=== PATIENT | female | born 1935 | race Caucasian/White ===

== ENCOUNTER → 2019-02-24 11:49 | Outpatient (CLI) | payer MEDICARE, SELFPAY ==
--- NOTE | 2019-02-24 11:53 | DI.MG.S_ITS ---
UNILATERAL LEFT DIGITAL SCREENING MAMMOGRAM 3D/2D WITH CAD POST MASTECTOMY: 02/24/2019 CLINICAL: Routine screening. Personal history of right breast cancer. Comparison is made to exams dated: 03/23/2017 mammogram, 01/30/2014 mammogram, and 06/12/2011 mammogram - [facility]. There are scattered fibroglandular elements in left breast. Current study was also evaluated with a Computer Aided Detection (CAD) system. There are benign vascular calcifications in the left breast. No significant masses, calcifications, or other findings are seen in the breast. There has been no significant interval change. IMPRESSION: There is no mammographic evidence of malignancy. A 1 year screening mammogram is recommended. This exam was interpreted at Station ID: [id number]. NOTE: For mammograms, a report in lay terms will be sent to the patient. Approximately 15% of breast malignancies will not be visualized mammographically. In the management of a palpable breast mass, a negative mammogram must not discourage biopsy of a clinically suspicious lesion. Electronically Signed By: Jarvis juarez/raymon:02/24/2019 18:33:07 letter sent: Normal Exam ACR BI-RADS Category 2: Benign Finding(s) 3342F
== END ==
PROVIDERS: PCP Internal Medicine; Visit Provider Student in an Organized Health Care Education/Training Program
DX: Z12.31 Encounter for screening mammogram for malignant neoplasm of breast (principal); Z85.3 Personal history of malignant neoplasm of breast
CPT/HCPCS: 77063; 77067

== ENCOUNTER → 2019-05-05 12:18 | Outpatient (CLI) | payer MEDICARE, SELFPAY ==
--- NOTE | 2019-05-05 | DI.RAD.S_ITS ---
PROCEDURE: XR WRIST RT MIN 3V INDICATIONS: pain TECHNIQUE: 4 views of the wrist were acquired. COMPARISON: [facility], CR, XR HAND RT MIN 3V, 05/05/2019, 12:23. FINDINGS: Bones: No fractures or dislocations. No suspicious bony lesions. Scaphoid view: No trauma to the scaphoid is found. Soft tissues: No suspicious soft tissue calcifications. 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 No trauma. Dictated by: Dann Rosario M.D. on 05/05/2019 at 12:56 Approved by: Dann Rosario M.D. on 05/05/2019 at 12:57
--- NOTE | 2019-05-05 | DI.RAD.S_ITS ---
PROCEDURE: XR HAND RT MIN 3V INDICATIONS: pain TECHNIQUE: 3 views of the hand(s) acquired. COMPARISON: None. FINDINGS: Bones: No fractures or dislocations. Carpal bones are normally aligned. No suspicious bony lesions. Soft tissues: No suspicious soft tissue calcifications. IMPRESSION: Mild degenerative osteoarthritic joint space narrowing at the distal interphalangeal joints but no sign of erosive arthritis or recent trauma is found. Dictated by: Dann Rosario M.D. on 05/05/2019 at 12:55 Approved by: Dann Rosario M.D. on 05/05/2019 at 12:56
== END ==
PROVIDERS: PCP Student in an Organized Health Care Education/Training Program; Visit Provider Student in an Organized Health Care Education/Training Program
DX: S69.91XA Unspecified injury of right wrist, hand and finger(s), initial encounter (principal); M19.041 Primary osteoarthritis, right hand; M19.031 Primary osteoarthritis, right wrist
CPT/HCPCS: 73110; 73130

== ENCOUNTER 2019-05-23 11:27 | Emergency (ER) | payer MEDICARE, SELFPAY ==
[2019-05-23 11:35] VITALS: BP 147/87; PULSE 59; RESP 17; TEMP 36.6; O2SAT 100; BMI 29.2
--- NOTE | 2019-05-23 11:41 | ED.SKABFB ---
HPI - Skin/Abscess/Foreign Bdy General Chief complaint: Skin/Abscess/Foreign Body Stated complaint: r hand swelling and lump Time Seen by Provider: 05/23/19 11:39 Source: patient Mode of arrival: ambulatory Limitations: no limitations History of Present Illness HPI narrative: Patient is an 83-year-old female who presents with right hand swelling. She actually fell a few weeks ago and had some bruising. She is on Coumadin. She has some remnants of her bruising on her right forearm. However on the dorsal side of her hand she has significant swelling it has been there since May 02 and has not gone down. It is not erythematous she can still move all of her fingers she has not had any fever. MD complaint: abscess/boil Location: R hand Related Data Home Medications Medication Instructions Recorded Confirmed CARVEDILOL (Coreg) 3.125 mg PO BID #0 02/02/11 Losartan Potassium (Cozaar) 25 mg PO Q DAY #0 02/02/11 NITROGLYCERIN (Nitrostat) 0.4 mg SUBLINGUAL [id number] #0 02/02/11 omeprazole 20 mg PO QDAY #0 02/02/11 sertraline 100 mg PO QDAY #0 01/11/17 Previous Rx's Medication Instructions Recorded aspirin 81 mg PO AMCC #30 tab 01/11/17 oxycodone 5 mg PO Q4HP PRN #20 tab 07/10/17 hydrocodone-acetaminophen [Vicodin] 1 tab PO Q4HP PRN #20 tab 10/03/17 Allergies Allergy/AdvReac Type Severity Reaction Status Date / Time No Known Drug Allergies Allergy Verified 03/21/18 14:14 Review of Systems Review of Systems GENERAL: Denies chills,fever HEENT: Denies throat pain RESPIRATORY: Denies dyspnea, cough, wheezing CARDIOVASCULAR: Denies chest pain, palpitations GASTROINTESTINAL: Denies nausea, vomiting MUSCULOSKELETAL: Denies extremity pain, injury SKIN: No rash, no laceration, no pruritus NEUROLOGIC: Denies weakness, dizziness, headache, numbness 8 point review of systems is negative except for those stated above and HPI PFSH Social History Smoking Status: Never smoker Social History Smoking Status: Never smoker Exam Initial Vital Signs Initial Vital Signs: Vital Signs Temperature 97.9 F 05/23/19 11:35 Pulse Rate 59 L 05/23/19 11:35 Respiratory Rate 17 05/23/19 11:35 Blood Pressure 147/87 H 05/23/19 11:35 Pulse Oximetry 100 05/23/19 11:35 GENERAL: Well-appearing, well-nourished and in no acute distress. CARDIOVASCULAR: peripheral pulses in tact, cap refill <2 sec RESPIRATORY: No respiratory distress, speaks in full sentences without difficulty EXTREMITIES: Normal range of motion, no clubbing or edema. Neurovascularly intact NEUROLOGICAL: Cranial nerves II through XII grossly intact. Normal gait and speech. SKIN: 4 cm x 3 cm localized swelling on the dorsal side of hand. Minimal erythema movable. Procedures Abscess I/D Site: hand Side (if applicable): right Local Anesthetic: lidocaine 1% Technique: incised with #11 blade Packing used?: none Course Vital Signs - 8 hr 05/23/19 11:35 05/23/19 12:31 Temperature 97.9 F Pulse Rate 59 L 53 L Respiratory Rate 17 15 Blood Pressure 147/87 H 125/38 L Pulse Oximetry 100 99 MDM - Skin/Abscess/Foreign Bdy MDM Narrative Medical decision making narrative: This is likely hematoma. Does not seem to be infectious. It has not gone away for number of weeks. At this time I think I and D appropriate. Multiple large blood clots were removed. Swelling has gone down. Bleeding controlled with a dressing. Discharge Plan Departure Patient Disposition: Home Clinical Impression: Hematoma Discharge Date/Time: 05/23/19 12:32 Interventions: ED Discharge Assessment Last Done: 05/23/19 12:31 Instructions: DI for Hematoma (Bruise), DI for Incision and Drainage Activity Restrictions/Additional Instructions: *You have been diagnosed with hematoma right hand *What to do: Keep dressing on it until tomorrow morning. He will have some bleeding due to Coumadin. Keep area clean and dry with soap and water. *Continue to take medications as directed *Follow up with your primary care provider in 2-3 days *Return to ER if you should have redness, pus, swelling, increased or any new, worsening or concerning symptoms Prescriptions: No Action CARVEDILOL (Coreg) 3.125 mg PO BID Qty: 0 RF: 0 Losartan Potassium (Cozaar) 25 mg PO Q DAY Qty: 0 RF: 0 omeprazole 20 MG capsule,delayed release(DR/EC) 20 mg PO QDAY Qty: 0 RF: 0 NITROGLYCERIN (Nitrostat) 0.4 mg Sublingual [id number] Qty: 0 RF: 0 sertraline 100 MG tablet 100 mg PO QDAY Qty: 0 RF: 0 aspirin 81 MG tablet,delayed release (DR/EC) 81 mg PO AMCC Qty: 30 RF: 0 oxycodone 5 MG tablet 5 mg PO Q4HP PRNQty: 20 RF: 0 hydrocodone-acetaminophen [Vicodin] 5 MG/300 MG tablet 1 tab PO Q4HP PRNQty: 20 RF: 0 Referrals: Laura Arnold PA-C [Primary Care Provider] -
--- NOTE | 2019-05-23 12:17 | PC.NURSE ---
Wrapped hand with telfa, gauze and coban to apply pressure to right hand where I&D completed.
[2019-05-23 12:31] VITALS: BP 125/38; PULSE 53; RESP 15; O2SAT 99
== END 2019-05-23 12:32 | disposition home or self-care (01) ==
PROVIDERS: Emergency Provider Emergency Medicine; PCP Student in an Organized Health Care Education/Training Program
DX: S60.221D Contusion of right hand, subsequent encounter (principal); W19.XXXD Unspecified fall, subsequent encounter; Z79.01 Long term (current) use of anticoagulants
CPT/HCPCS: 10140; 99282

== ENCOUNTER → 2019-12-02 14:24 | Outpatient (CLI) | payer MEDICARE, SELFPAY ==
--- NOTE | 2019-12-02 | DI.RAD.S_ITS ---
PROCEDURE: XR CHEST 2V INDICATIONS: Bronchitis, not specified as acute or chronic TECHNIQUE: 2 views of the chest were acquired. COMPARISON: [facility], , CHEST 2 VIEW, 06/24/2010, 10:04. [facility], , CHEST 1 VIEW, 01/10/2017, 16:06. FINDINGS: Surgical changes and devices: None. Lungs and pleura: Lungs are clear. No pleural effusions or pneumothorax. Mediastinum: Mediastinal contours are normal. Heart size is normal. Bones and chest wall: No suspicious bony abnormalities. Soft tissues appear unremarkable. IMPRESSION: No acute cardiopulmonary disease. Dictated by: Kevin Shin M.D. on 12/02/2019 at 15:27 Approved by: Kevin Shin M.D. on 12/02/2019 at 15:28
== END ==
PROVIDERS: PCP Student in an Organized Health Care Education/Training Program; Visit Provider Internal Medicine
DX: J40 Bronchitis, not specified as acute or chronic (principal)
CPT/HCPCS: 71046

== ENCOUNTER 2022-07-29 11:08 | Observation (INO) | payer MEDICARE, SELFPAY ==
[2022-07-29] VITALS (9 sets, daily range): BP systolic 117–142; BP diastolic 64–77; PULSE 81–97; RESP 16–20; TEMP 36.5–36.6; O2SAT 91–100; BMI 29.2
--- NOTE | 2022-07-29 11:21 | ED_ITS ---
HPI - Abdominal Pain General Chief Complaint: Abdominal Pain Stated Complaint: Pneumonia 2 days sharp pain lower lt side Time Seen by Provider: 07/29/22 11:20 Source: patient Mode of arrival: Ambulatory Limitations: no limitations History of Present Illness HPI narrative: This is an 86-year-old female with recently diagnosed right-sided pneumonia on azithromycin and cefuroxime, atrial fibrillation anticoagulant warfarin, hypertension, dyslipidemia, prior breast cancer with mastectomy and prior diverticulitis resulting in colon resection. Patient presents today with left lower quadrant pain that started yesterday. Patient states she took some Tylenol yesterday was helpful but pain returned. She denies fevers or chills. Denies chest pain or shortness of breath, she denies syncope. She denies nausea or vomiting. She states she is had diarrhea for the last several days she started antibiotics on the . She denies black or bloody stools. She states she would a large amount of diarrhea yesterday less so today. She states pain is left lower quadrant radiates towards her back but back pain is significantly less and that pain started in the front. She denies any dysuria, urgency frequency, hematuria or difficulty with urination. Patient denies any vaginal bleeding or discharge. She is unsure if this feels similar to her prior diverticulitis. Patient does have a little bit of bruising on her abdomen she does not recall any trauma or injury but states she does bruise easily. She denies tobacco occasional alcohol, no illicit. She was seen and started by antibiotics from an urgent care in [place]. Daughter notes she is on 3 medications for anxiety/depression including fluoxetine, sertraline and paroxetine which she states in terms of follow-up if this should be adjusted. Related Data Home Medications Medication Instructions Recorded Confirmed CARVEDILOL (Coreg) 3.125 mg PO BID ##0 02/02/11 07/29/22 Losartan Potassium (Cozaar) 25 mg PO Q DAY ##0 02/02/11 07/29/22 NITROGLYCERIN (Nitrostat) 0.4 mg sublingual [id number] ##0 02/02/11 07/29/22 omeprazole 20 mg capsule,delayed 20 mg PO QDAY ##0 02/02/11 07/29/22 release sertraline 100 mg tablet 100 mg PO QDAY ##0 01/11/17 07/29/22 bupropion HCl 150 mg tablet,12 hr 150 mg PO 07/29/22 sustained-release gabapentin 300 mg capsule 300 mg PO TID 07/29/22 07/29/22 Previous Rx's Medication Instructions Recorded aspirin 81 mg tablet,delayed 81 mg PO AMCC #30 tabs 01/11/17 release oxycodone 5 mg tablet 5 mg PO Q4HP PRN #20 tabs 07/10/17 hydrocodone 5 mg-acetaminophen 300 1 tab PO Q4HP PRN #20 tabs 10/03/17 mg tablet (Vicodin) Allergies Allergy/AdvReac Type Severity Reaction Status Date / Time No Known Drug Allergies Allergy Verified 07/29/22 11:17 Review of Systems Review of Systems ROS Unobtainable: All systems reviewed & are unremarkable except as noted in HPI and below Patient History Medical History Atrial fibrillation HLD (hyperlipidemia) HTN (hypertension) Surgical History H/O skin graft History of appendectomy S/P laparoscopic-assisted sigmoidectomy Social History Smoking Status: Never smoker Smoking Status: Never smoker alcohol intake frequency: holidays/special occasions only Substance Use Type: does not use Exam Narrative Exam Narrative: GENERAL: Alert and oriented x three, elderly female in moderate distress. HEENT: Head normocephalic, atraumatic, EOMI, pupils reactive, face symmetric, moist mucous membranes NECK: Supple, full range of motion CARDIOVASCULAR: Regular rate and rhythm without murmurs, rubs or gallops. No JVD. No swelling bilateral lower extremities. RESPIRATORY: Breath sounds equal bilaterally, no wheezes rales or rhonchi. No tachypnea or accessory muscle use. ABDOMEN: Soft, patient has left lower quadrant tenderness, positive for rebound, no guarding. No rigidity. Patient is mildly distended. Normoactive bowel sounds all 4 quadrants. No mass appreciated. : No CVA tenderness EXTREMITIES: Normal range of motion, no clubbing or edema. Neurovascularly intact NEUROLOGICAL: Cranial nerves II through XII grossly intact. Moving all extremities SKIN: Warm, dry, no petechiae, no rashes or lesions, patient has a small amount of ecchymosis greenish discoloration periumbilical with no obvious hematoma and nontender over that site. Initial Vital Signs Initial Vital Signs: Vital Signs Temperature 97.8 F 07/29/22 11:13 Pulse Rate 90 07/29/22 11:13 Respiratory Rate 16 07/29/22 11:13 Blood Pressure 138/75 07/29/22 11:13 Pulse Oximetry 98 07/29/22 11:13 Oxygen Delivery Method 07/29/22 11:13 Course Orders Ordered: ED Orders 07/29/22 11:25 Complete Blood Count AUTO DIFF Stat Comprehensive Metabolic Panel Stat Lipase Stat Partial Thromboplastin Time Stat Prothrombin Time INR Stat 07/29/22 11:26 EKG-12 Lead Stat 07/29/22 11:33 CT abdomen pelvis w con Stat 07/29/22 12:54 COVID19 -Nasal RAPID/Pre-Proc Stat 07/29/22 15:28 Education, smoking cessation ONGOING 07/29/22 17:30 Hemoglobin and Hematocrit Q6H 07/29/22 23:30 Hemoglobin and Hematocrit Q6H Acetaminophen (Acetaminophen 325 Mg Tablet) 650 mg PO Q8H PRN PRN Reason: Pain, Mild (1-3) Hydrocodone Bitart/Acetaminophen (Hydrocodone/Acet 5/325 Tablet) 1 tab PO Q4HR PRN PRN Reason: Pain, Moderate (4-6) Last Admin: 07/29/22 15:37 Dose: 1 tab Documented By: BT Albuterol (Albuterol 2.5 Mg/3 Ml Neb (Adult)) 2.5 mg INH [id number] PRN PRN Reason: Shortness Of Breath Amoxicillin/Clavulanate Potassium (Amoxicillin/Clav 875/125 Mg) 1 tab PO BID DEQUAN Stop: 08/01/22 20:59 Ondansetron HCl (Ondansetron 4 Mg/2 Ml Inj) 4 mg IV Q6HR PRN PRN Reason: Nausea And Vomiting Last Admin: 07/29/22 12:18 Dose: 4 mg Documented By: MC Discontinued Medications Acetaminophen (Acetaminophen 325 Mg Tablet) 975 mg PO Q8H PRN PRN Reason: Pain, Mild (1-3) Prothrombin Complex Concent ( Human) 2,500 unit/Miscellaneous 100 mls @ 489.881 mls/hr IV NOW ONE; Protocol Stop: 07/29/22 12:59 Last Infusion: 07/29/22 13:29 Dose: 2.99 unit/kg/min, 489 mls/hr Documented By: Admin: 07/29/22 13:15 Dose: 3 unit/kg/min, 489.881 mls/hr Documented By: LISETTE Phytonadione 10 mg/ Sodium (Chloride) 101 mls @ 202 mls/hr IV NOW ONE Stop: 07/29/22 13:08 Last Infusion: 07/29/22 14:35 Dose: 202 mls/hr Documented By: Admin: 07/29/22 13:56 Dose: 202 mls/hr Documented By: LISETTE Morphine Sulfate (Morphine 2 Mg/Ml Inj) 2 mg IV NOW ONE Stop: 07/29/22 11:33 Last Admin: 07/29/22 12:18 Dose: 2 mg Documented By: Morphine Sulfate (Morphine 2 Mg/Ml Inj) 2 mg IV NOW ONE Stop: 07/29/22 15:01 Last Admin: 07/29/22 15:37 Dose: 2 mg Documented By: Consultations Consultation #1: Ruthann, general surgery unlikely to be a surgical candidate. Agrees with current plan ask for admission under Medicine. Time: 13:00 Consultation #2: Dr. Oh, hospitalist accepts for observation. Kcentra has been ordered. Time: 13:10 Vital Signs Vital signs: Vital Signs - 8 hr 07/29/22 11:13 07/29/22 11:14 07/29/22 11:14 Temperature 97.8 F Pulse Rate 90 94 H Respiratory Rate 16 Blood Pressure 138/75 138/75 Pulse Oximetry 98 95 Oxygen Delivery Method Room Air 07/29/22 11:30 07/29/22 11:30 07/29/22 12:00 Temperature Pulse Rate 84 Respiratory Rate Blood Pressure 128/70 142/70 H Pulse Oximetry 98 Oxygen Delivery Method 07/29/22 12:00 07/29/22 12:30 Temperature Pulse Rate 81 87 Respiratory Rate Blood Pressure Pulse Oximetry 91 100 Oxygen Delivery Method MDM - Abdominal Pain Lab Data Result diagrams: 07/29/22 11:25 07/29/22 11:25 Labs: Lab Results 07/29/22 07/29/22 07/29/22 Range/Units 11:25 11:25 11:25 WBC 9.1 (4.5-11.0) X10^3/uL RBC 3.55 L (4.0-5.2) X10^6/uL Hgb 10.9 L (12.0-16.0) g/dL Hct 31.8 L (36-46) % MCV 89.5 (80-100) fL MCH 30.7 (26-34) PG MCHC 34.3 (30-36) % RDW 14.0 (11.6-14.8) % Plt Count 286 (150-400) X10^3/uL Neut % (Auto) 80.7 H (50-75) % Lymph % (Auto) 12.5 L (25-40) % [place] % (Auto) 5.3 (3-14) % Eos % (Auto) 1.0 L (2-4) % Baso % (Auto) 0.5 (0-2) % Neut # (Auto) 7400 H (3125-2943) /uL Lymph # (Auto) 1100 (4893-4827) /uL [place] # (Auto) 500 (0-900) /uL Eos # (Auto) 100 (0-450) /uL Baso # (Auto) 0 (0-100) /uL PT 61.4 H (10.1-12.7) SECONDS INR 5.3 H* (0.9-1.3) APTT 51 H (26-36) SECONDS Sodium 137 (137-145) mmol/L Potassium 4.1 (3.4-5.1) mmol/L Chloride 103 (98-107) mmol/L Carbon Dioxide 28 (22-32) mmol/L BUN 15 (7-17) mg/dL Creatinine 0.80 (0.52-1.04) mg/dL Estimated GFR > 60 (>60) mL/min BUN/Creatinine Ratio 18.8 (6-22) Glucose 182 H (80-110) mg/dL Calcium 8.5 (8.4-10.2) mg/dL Total Bilirubin 0.4 (0.2-1.3) mg/dL AST 23 (14-36) IU/L ALT 16 (<35) IU/L Alkaline Phosphatase 74 (38-126) U/L Total Protein 6.9 (6.3-8.2) g/dL Albumin 3.7 (3.5-5.0) g/dL Globulin 3.2 (1.7-4.1) g/dL Albumin/Globulin Ratio 1.2 (1.0-2.8) Lipase 51 (23-300) U/L SARS-CoV-2 (PCR) (Negative) 07/29/22 Range/Units 12:54 WBC (4.5-11.0) X10^3/uL RBC (4.0-5.2) X10^6/uL Hgb (12.0-16.0) g/dL Hct (36-46) % MCV (80-100) fL MCH (26-34) PG MCHC (30-36) % RDW (11.6-14.8) % Plt Count (150-400) X10^3/uL Neut % (Auto) (50-75) % Lymph % (Auto) (25-40) % [place] % (Auto) (3-14) % Eos % (Auto) (2-4) % Baso % (Auto) (0-2) % Neut # (Auto) (3705-9430) /uL Lymph # (Auto) (2104-7570) /uL [place] # (Auto) (0-900) /uL Eos # (Auto) (0-450) /uL Baso # (Auto) (0-100) /uL PT (10.1-12.7) SECONDS INR (0.9-1.3) APTT (26-36) SECONDS Sodium (137-145) mmol/L Potassium (3.4-5.1) mmol/L Chloride (98-107) mmol/L Carbon Dioxide (22-32) mmol/L BUN (7-17) mg/dL Creatinine (0.52-1.04) mg/dL Estimated GFR (>60) mL/min BUN/Creatinine Ratio (6-22) Glucose (80-110) mg/dL Calcium (8.4-10.2) mg/dL Total Bilirubin (0.2-1.3) mg/dL AST (14-36) IU/L ALT (<35) IU/L Alkaline Phosphatase (38-126) U/L Total Protein (6.3-8.2) g/dL Albumin (3.5-5.0) g/dL Globulin (1.7-4.1) g/dL Albumin/Globulin Ratio (1.0-2.8) Lipase (23-300) U/L SARS-CoV-2 (PCR) Negative (Negative) ECG Data Attestation: I personally reviewed and interpreted this ECG as follows: Prior ECG tracings: available for review Interpretation: Sinus rhythm rate 87 SD 158 QRS of 112 and QTC 476. No acute ST elevation depression noted. Left temperature fascicular block. Patient has priors from 2017 and prior to this with no acute ST changes. MDM Narrative Medical decision making narrative: This is an elderly 86-year-old female with reproducible left lower quadrant pain patient is quite tender on several days of antibiotics for pneumonia, patient does not have any pneumonia symptoms currently. She is not hypoxic, she is not tachycardic or having signs of sepsis but is quite uncomfortable she does have a history of diverticulitis with prior resection so labs, urine and CT abdomen pelvis obtained. Patient has a history of AFib she appears to be in sinus rhythm today with no acute changes on EKG. Patient's labs show drop in her hemoglobin but from 2018 so unclear on the time frame, patient is not tachycardic or hypotensive but found to have active extravasation hematoma on CT of abdomen and pelvis which appears to be in the muscular soft tissue region. Kcentra was ordered and administered along with vitamin K. discussed risks versus benefits with patient she will not be fully anticoagulated in terms of stroke but with active extravasation I think most appropriate to treat. Discussed this risks versus benefit with patient and family at bedside they are agreeable with current plan. Discussed with general surgery who recommends observation, patient is unlikely to require surgical intervention but happy to consult ask for admission to medicine. Patient is allowed to have a diet order. Spoke with our hospitalist Dr. Oh who accepts for observation. Agrees with plan for Kcentra and will continue to monitor. Did note that patient's hemoglob in is lower but this has been several years. Discharge Plan Departure Patient Disposition: Admitted as Observation Clinical Impression: Abdominal hemorrhage, Traumatic hematoma of abdominal wall, Supratherapeutic INR Admit Date/Time: 07/29/22 13:09 Admit Provider: Destin Oh
--- NOTE | 2022-07-29 11:33 | DI.CT.S_ITS ---
PROCEDURE: CT ABDOMEN PELVIS W CON INDICATIONS: LLQ pain x 24h, tender, hx diveritculitis w/ resection, ecch TECHNIQUE: After the administration of oral and IV contrast, axial sections were acquired from the lung bases to the pubic symphysis. Coronal and sagittal reformats were performed. For radiation dose reduction, the following was used: automated exposure control, adjustment of mA and/or kV according to patient size. COMPARISON: [facility], CT, ABDOMEN/PELVIS WITH CONTRAST, 03/24/2018, 21:25. FINDINGS: Image quality: Excellent. Lung bases: 4 mm left lower lobe pulmonary nodule series 3, image 5 unchanged since 2018. Heart: Heart is mildly enlarged.. ABDOMEN: Liver: Multiple low-attenuation foci are present within the liver the largest measuring 3.5 cm. They are overall unchanged in most consistent with simple cysts. Gallbladder: Multiple luminal calcifications without wall thickening are again identified without change. Biliary ducts: Unremarkable. Pancreas: Unremarkable. Spleen: Unremarkable. Adrenal Glands: Unremarkable. Kidneys and Ureters: Unremarkable. Stomach and Bowel: Stomach, small bowel loops, and colon are unremarkable. There is an anterior left intra-abdominal focus of soft tissue density at the rectus musculature measuring 4.7 cm AP x 9.8 cm transverse by 11.7 cm craniocaudal. Hounsfield units measure 40. There are superior NASCET areas of hyperdensity identified within the mass. There are areas adjacent stranding. In addition, similar masslike appearance is identified in the left inferior pelvic sidewall measuring 6.0 x 2.9 cm. There is mass effect on the bladder deviating it to the right. Abdominal Nodes: No retroperitoneal or mesenteric adenopathy by size criteria. Vessels: Aorta and inferior vena cava are normal in size. PELVIS: Pelvic Organs: Bladder is shifted to the right as above. It is incompletely distended. Bladder: Unremarkable. Pelvic Nodes: No enlarged lymph nodes. Miscellaneous: No inguinal hernias are seen. Bones: Unremarkable. IMPRESSION: Soft tissue density within the anterior abdominal wall also extending to the lower pelvic sidewall with Hounsfield units suggestive hematoma. In addition, serpiginous areas of hyperdensity are identified within the mass most consistent with active hemorrhage extravasation. It is causing [id number] mass effect on the bladder. Surrounding inflammatory changes present. Dictated by: Digna Palmer M.D. on 07/29/2022 at 12:36 Approved by: Digna Palmer M.D. on 07/29/2022 at 12:40
[2022-07-29 11:39] LABS: Add Manual Diff / Slide Review NO; Basophils Absolute Auto 0 /uL (0-100); Basophils Percent Auto 0.5 % (0-2); Eosinophils Absolute Auto 100 /uL (0-450); Hematocrit 31.8 % (36-46); Hemoglobin 10.9 g/dL (12.0-16.0); Lymphocytes Absolute Auto 1100 /uL (1100-4500); Lymphocytes Percent Auto 12.5 % (25-40); Mean Corpuscular HGB Conc 34.3 % (30-36); Mean Corpuscular Hemoglobin 30.7 PG (26-34); Mean Corpuscular Volume 89.5 fL (80-100); Monocytes Absolute Auto 500 /uL (0-900); Monocytes Percent Auto 5.3 % (3-14); Neutrophils Absolute Auto 7400 /uL (1500-7000); Neutrophils Percent Auto 80.7 % (50-75); Platelet Count 286 X10^3/uL (150-400); Red Blood Cell Count 3.55 X10^6/uL (4.0-5.2); White Blood Cell Count 9.1 X10^3/uL (4.5-11.0)
[2022-07-29 11:54] LABS: Alanine Aminotransferase 16 IU/L (<35); Albumin 3.7 g/dL (3.5-5.0); Albumin Globulin Ratio 1.2 (1.0-2.8); Alkaline Phosphatase 74 U/L (38-126); Aspartate Aminotransferase 23 IU/L (14-36); BUN Creatinine Ratio 18.8 (6-22); Bilirubin Total 0.4 mg/dL (0.2-1.3); Blood Urea Nitrogen 15 mg/dL (7-17); Calcium 8.5 mg/dL (8.4-10.2); Carbon Dioxide 28 mmol/L (22-32); Chloride 103 mmol/L (98-107); Estimated Glomerular Filt Rate > 60 mL/min (>60); Globulin 3.2 g/dL (1.7-4.1); Glucose 182 mg/dL (80-110); HEMOLYSIS < 15 (0-50); Lipase 51 U/L (23-300); Potassium 4.1 mmol/L (3.4-5.1); Sodium 137 mmol/L (137-145); Total Protein 6.9 g/dL (6.3-8.2)
[2022-07-29 12:03] LABS: Prothrombin Time 61.4 SECONDS (10.1-12.7)
[2022-07-29 12:06] LABS: INR 5.3 (0.9-1.3); PTT Partial Thromboplastin Tim 51 SECONDS (26-36)
[2022-07-29] MEDS: MORPHINE 2 MG/ML INJ IV ×2 (12:18→15:37)
[2022-07-29] MEDS: ONDANSETRON 4 MG/2 ML INJ IV (12:18)
[2022-07-29] MEDS: PROTHROMBIN CPLX(PCC)4FACT 2,500 UNIT in ISOOSMOTIC VEHICLE 0 ML 489.881 UNIT IV (13:15)
[2022-07-29] MEDS: PHYTONADIONE (VIT K1) 10 MG in SODIUM CHLORIDE 0.9% 100 ML 202 MG IV (13:56)
[2022-07-29 14:18] LABS: COVID19 -Nasal RAPID Negative (Negative)
[2022-07-29] MEDS: HYDROCODONE/ACET 5/325 TABLET 1 TAB PO (15:37)
--- NOTE | 2022-07-29 15:57 | PM.HP.1 ---
History of Present Illness History of Present Illness Date Patient Seen: 07/29/22 Time Patient Seen: 15:57 Chief complaint: Pneumonia 2 days sharp pain lower lt side Narrative: This is an 86 year old female with PMH of paroxysmal atrial fibrillation, HTN, HLD, depression who presented with worsening abdominal pain. She states pain is in her LLQ, worse with movement, feels sharp and constant currently. It started a few days ago and thought it was from coughing. She denies radiation. She went to the walk in clinic a few days ago and was prescribed antibiotics for a pneumonia reportedly on a chest xray and has continued to have a non-productive cough. She denies any fever or chills. She has not shortness of breath, nausea, vomiting, diarrhea, constipation. She denies palpitatiosn or chest pain. In the emergency room, her vital signs were unremarkable. And laboratory evaluation showed No significant leukocytosis but mild anemia with a hemoglobin of 10.9 down from her baseline of approximately 13. INR was elevated at 5.3, chemistries were unremarkable. COVID-[address] of her abdomen and pelvis showed an abdominal wall hematoma in her pelvis that is 5x9x12 cm in size with possible active extravasation. She was given K-centra and vitamin K. She was admitted for further montioring to the hospitalist service. Patient History Medical History Atrial fibrillation HLD (hyperlipidemia) HTN (hypertension) Surgical History H/O skin graft History of appendectomy S/P laparoscopic-assisted sigmoidectomy Family & Social History Family history unavailable: Yes (Patient denies relevant past family history in her mother or father) Safety & Behavioral: Feels Safe in Current Yes Environment Been Physically Hurt or No Threatened By a Person Tobacco & Substance use: Smoking Status Never smoker alcohol intake frequency holiday/special occasion Substance Use Type does not use Meds Home Medications and Allergies Home Medications Medication Instructions Recorded Confirmed Type CARVEDILOL (Coreg) 3.125 mg PO BID ##0 02/02/11 07/29/22 History Losartan Potassium (Cozaar) 25 mg PO Q DAY ##0 02/02/11 07/29/22 History NITROGLYCERIN (Nitrostat) 0.4 mg sublingual [id number] ##0 02/02/11 07/29/22 History omeprazole 20 mg capsule,delayed 20 mg PO QDAY ##0 02/02/11 07/29/22 History release aspirin 81 mg tablet,delayed 81 mg PO [facility] #30 tabs 01/11/17 07/29/22 Rx release sertraline 100 mg tablet 100 mg PO QDAY ##0 01/11/17 07/29/22 History oxycodone 5 mg tablet 5 mg PO Q4HP PRN #20 tabs 07/10/17 07/29/22 Rx hydrocodone 5 mg-acetaminophen 300 1 tab PO Q4HP PRN #20 tabs 10/03/17 07/29/22 Rx mg tablet (Vicodin) bupropion HCl 150 mg tablet,12 hr 150 mg PO 07/29/22 History sustained-release gabapentin 300 mg capsule 300 mg PO TID 07/29/22 07/29/22 History Allergies Allergy/AdvReac Type Severity Reaction Status Date / Time No Known Drug Allergies Allergy Verified 07/29/22 11:17 Review of Systems Review of Systems Narrative: All other systems reviewed with the patient and are negative unless otherwise stated. Exam Vital Signs (past 8 hours): - 07/29/22 11:13 07/29/22 11:14 07/29/22 11:14 Temperature 97.8 F Pulse Rate 90 94 H Respiratory Rate 16 Blood Pressure 138/75 138/75 Pulse Oximetry 98 95 Oxygen Delivery Method Room Air Oxygen Flow Rate 07/29/22 11:30 07/29/22 11:30 07/29/22 12:00 Temperature Pulse Rate 84 Respiratory Rate Blood Pressure 128/70 142/70 H Pulse Oximetry 98 Oxygen Delivery Method Oxygen Flow Rate 07/29/22 12:00 07/29/22 12:30 07/29/22 15:09 Temperature Pulse Rate 81 87 87 Respiratory Rate 20 Blood Pressure 130/67 Pulse Oximetry 91 100 99 Oxygen Delivery Method Room Air Oxygen Flow Rate 07/29/22 15:30 Temperature 97.7 F Pulse Rate 97 H Respiratory Rate 16 Blood Pressure 120/77 Pulse Oximetry 98 Oxygen Delivery Method Oxygen Flow Rate 0 Oxygen Delivery Method Room Air Oxygen Flow Rate 0 Narrative Exam Narrative: General:? Patient is well developed and well nourished, in no distress at this time. HEENT:? Normocephalic, atraumatic, extraocular muscles intact, oral pharynx is clear and mucous membranes are moist. Neck: supple and symmetric, trachea is midline, no cervical adenopathy. Negative for JVD Chest:? Normal AP diameter and contour without kyphoscoliosis, no tachypnea, equal chest rise bilaterally. Lungs:? CTA b/l no wheezing rhonchi or rales. Cardio:?RRR no m/r/g. Abdomen: soft, mildly tender suprapubic region and LLQ. Small ecchymosis suprapubically, Musculoskeletal:? Muscle strength and tone are equal within normal limits, no deformity. Extremities: No joint effusions, trace bilateral non-pitting edema. No cyanosis or clubbing. Skin:? Pale,? Warm to touch,dry and intact without rashes, ulcerations or petechiae.? Neuro:? Alert and orientated x3,? sensation to touch intact in all extremities, no gross deficits noted of cranial nerves. Psych:? Patient has a well-kept appearance, appropriate affect, mental status attitude thought context and judgment are appropriate for age. Objective ECG Impression: NSR with LAFB. As interpreted by me. Labs Result Diagrams: 07/29/22 11:25 07/29/22 11:25 Labs: Laboratory Results - last 24 hr 07/29/22 07/29/22 07/29/22 11:25 11:25 11:25 WBC 9.1 RBC 3.55 L Hgb 10.9 L Hct 31.8 L MCV 89.5 MCH 30.7 MCHC 34.3 RDW 14.0 Plt Count 286 Neut % (Auto) 80.7 H Lymph % (Auto) 12.5 L [place] % (Auto) 5.3 Eos % (Auto) 1.0 L Baso % (Auto) 0.5 Neut # (Auto) 7400 H Lymph # (Auto) 1100 [place] # (Auto) 500 Eos # (Auto) 100 Baso # (Auto) 0 PT 61.4 H INR 5.3 H* APTT 51 H Sodium 137 Potassium 4.1 Chloride 103 Carbon Dioxide 28 BUN 15 Creatinine 0.80 Estimated GFR > 60 BUN/Creatinine Ratio 18.8 Glucose 182 H Calcium 8.5 Total Bilirubin 0.4 AST 23 ALT 16 Alkaline Phosphatase 74 Total Protein 6.9 Albumin 3.7 Globulin 3.2 Albumin/Globulin Ratio 1.2 Lipase 51 SARS-CoV-2 (PCR) 07/29/22 12:54 WBC RBC Hgb Hct MCV MCH MCHC RDW Plt Count Neut % (Auto) Lymph % (Auto) [place] % (Auto) Eos % (Auto) Baso % (Auto) Neut # (Auto) Lymph # (Auto) [place] # (Auto) Eos # (Auto) Baso # (Auto) PT INR APTT Sodium Potassium Chloride Carbon Dioxide BUN Creatinine Estimated GFR BUN/Creatinine Ratio Glucose Calcium Total Bilirubin AST ALT Alkaline Phosphatase Total Protein Albumin Globulin Albumin/Globulin Ratio Lipase SARS-CoV-2 (PCR) Negative Assessment & Plan Assessment & Plan narrative: 1. Abdominal wall hematoma - monitor h/h q6 hr for now, repeat CT if continuing to downtrend. Suspect in setting of cough and supratherapeutic INR. - given K centra and vit K in the ER for INR 5.3 in setting of warfarin use - hold warfarin - start PT/OT after stabilized. - general surgery consultation if bleeding does not stop. 2. Paroxysmal atrial fibrillation with supratherapeutic INR - will hold home rate control for now given bleeding and normotension and hold warfarin 3. HTN - will hold home medications for now in setting of bleeding. 4. HLD - continue statin 5. Depression, chronic - continue home medications 6. Recent diagnosis of community acquired pneumonia - was on cephalosporin and azithro from walk in clinic, will continue augmentin here. total 3 more days should suffice. Code: Full, surrogate decision maker is the patient's youngest daughter DVT: SCDs given active bleeding Dispo: admit under observation status I have utilized all available immediate resources to obtain, update, or review the patient's current medications. Time Spent With Patient Critical Care time: I spent a total of [] minutes of critical care time on this patient's care today; this time is exclusive of procedural time. Quality MIPS - Admit I confirm the patient?s Advance Care Plan is present, Code status is documented, Surrogate decision maker is in patient?s record [If Yes, STOP here]: Yes
[2022-07-29 19:26] LABS: Hematocrit 29.2 % (36-46); Hemoglobin 9.9 g/dL (12.0-16.0)
[2022-07-29] MEDS: AMOXICILLIN/CLAV 875/125 MG 1 TAB PO (20:15)
[2022-07-30] VITALS (9 sets, daily range): BP systolic 114–133; BP diastolic 58–88; PULSE 79–93; RESP 14–18; TEMP 35.7–36.6; O2SAT 93–96
[2022-07-30] MEDS: HYDROCODONE/ACET 5/325 TABLET 1 TAB PO ×3 (04:52→16:24)
[2022-07-30 05:17] LABS: Add Manual Diff / Slide Review NO; Basophils Absolute Auto 0 /uL (0-100); Basophils Percent Auto 0.4 % (0-2); Eosinophils Absolute Auto 100 /uL (0-450); Eosinophils Percent Auto 0.9 % (2-4); Hematocrit 26.4 % (36-46); Hemoglobin 8.9 g/dL (12.0-16.0); Lymphocytes Absolute Auto 2000 /uL (1100-4500); Lymphocytes Percent Auto 20.9 % (25-40); Mean Corpuscular HGB Conc 33.8 % (30-36); Mean Corpuscular Hemoglobin 30.4 PG (26-34); Mean Corpuscular Volume 89.8 fL (80-100); Monocytes Absolute Auto 800 /uL (0-900); Monocytes Percent Auto 8.3 % (3-14); Neutrophils Absolute Auto 6600 /uL (1500-7000); Neutrophils Percent Auto 69.5 % (50-75); Platelet Count 261 X10^3/uL (150-400); Red Blood Cell Count 2.94 X10^6/uL (4.0-5.2); Red Cell Distribution Width 13.8 % (11.6-14.8); White Blood Cell Count 9.5 X10^3/uL (4.5-11.0)
[2022-07-30 05:28] LABS: INR 1.2 (0.9-1.3); Prothrombin Time 13.3 SECONDS (10.1-12.7)
[2022-07-30] MEDS: AMOXICILLIN/CLAV 875/125 MG 1 TAB PO ×2 (09:29→20:56)
--- NOTE | 2022-07-30 12:41 | PM.PN.1 ---
Subjective Subjective Date Patient Seen: 07/30/22 Interval history: 86 F admitted with an abdominal wall hematoma. No change in abdominal symptoms today, reports pain is contorlled currently with medications. Her h/h dropped significantly this morning, continuing to trend h/h today. Exam Vital Signs (past 8 hours): - 07/30/22 04:55 07/30/22 08:00 07/30/22 11:20 Temperature 97.8 F 97.6 F 96.7 F L Pulse Rate 85 93 H 84 Respiratory Rate 18 16 16 Blood Pressure 114/62 120/88 116/70 Pulse Oximetry 93 96 93 Oxygen Flow Rate 0 0 Oxygen Delivery Method Room Air Oxygen Flow Rate 0 Narrative Exam Narrative: General:? Patient is well developed and well nourished, in no distress at this time. HEENT:? Normocephalic, atraumatic, extraocular muscles intact, oral pharynx is clear and mucous membranes are moist. Neck: supple and symmetric, trachea is midline, no cervical adenopathy. Negative for JVD Chest:? Normal AP diameter and contour without kyphoscoliosis, no tachypnea, equal chest rise bilaterally. Lungs:? CTA b/l no wheezing rhonchi or rales. Cardio:?RRR no m/r/g. Abdomen: soft, mildly tender suprapubic region and LLQ. Small ecchymosis suprapubically, Musculoskeletal:? Muscle strength and tone are equal within normal limits, no deformity. Extremities: No joint effusions, trace bilateral non-pitting edema. No cyanosis or clubbing. Skin:? Pale,? Warm to touch,dry and intact without rashes, ulcerations or petechiae.? Neuro:? Alert and orientated x3,? sensation to touch intact in all extremities, no gross deficits noted of cranial nerves. Psych:? Patient has a well-kept appearance, appropriate affect, mental status attitude thought context and judgment are appropriate for age. Objective Labs Result Diagrams: 07/30/22 04:54 07/29/22 11:25 Labs: Laboratory Results - last 24 hr 07/29/22 07/29/22 07/30/22 12:54 19:21 04:54 WBC 9.5 RBC 2.94 L Hgb 9.9 L 8.9 L Hct 29.2 L 26.4 L MCV 89.8 MCH 30.4 MCHC 33.8 RDW 13.8 Plt Count 261 Neut % (Auto) 69.5 Lymph % (Auto) 20.9 L [place] % (Auto) 8.3 Eos % (Auto) 0.9 L Baso % (Auto) 0.4 Neut # (Auto) 6600 Lymph # (Auto) 2000 [place] # (Auto) 800 Eos # (Auto) 100 Baso # (Auto) 0 PT INR SARS-CoV-2 (PCR) Negative 07/30/22 04:54 WBC RBC Hgb Hct MCV MCH MCHC RDW Plt Count Neut % (Auto) Lymph % (Auto) [place] % (Auto) Eos % (Auto) Baso % (Auto) Neut # (Auto) Lymph # (Auto) [place] # (Auto) Eos # (Auto) Baso # (Auto) PT 13.3 H D INR 1.2 SARS-CoV-2 (PCR) PFSH Medical History Atrial fibrillation HLD (hyperlipidemia) HTN (hypertension) Surgical History H/O skin graft History of appendectomy S/P laparoscopic-assisted sigmoidectomy Social History household members: none Smoking Status: Never smoker Assessment & Plan Assessment & Plan narrative: 1. Abdominal wall hematoma - monitor h/hfor now, repeat CT if continuing to downtrend. Suspect in setting of cough and supratherapeutic INR. - given K centra and vit K in the ER for INR 5.3 in setting of warfarin use. INR now improved to 1.2 - hold warfarin - start PT/OT after stabilized h/h - general surgery consultation if bleeding does not stop. Consider transfer for embolization if still active extravasation. 2. Paroxysmal atrial fibrillation with supratherapeutic INR - will hold home rate control for now given bleeding and normotension and hold warfarin 3. HTN - will hold home medications for now in setting of bleeding. 4. HLD - continue statin 5. Depression, chronic - continue home medications 6. Recent diagnosis of community acquired pneumonia - was on cephalosporin and azithro from walk in clinic, will continue augmentin here. total 3 more days should suffice. Code: Full, surrogate decision maker is the patient's youngest daughter DVT: SCDs given active bleeding Dispo: admitted under observation status I have utilized all available immediate resources to obtain, update, or review the patient's current medications. Time Spent With Patient Critical Care time: I spent a total of [] minutes of critical care time on this patient's care today; this time is exclusive of procedural time. Quality VTE Deep Vein Thrombosis/Pulmonary Embolism Present on Admission: No
[2022-07-30 14:15] LABS: Hematocrit 25.4 % (36-46); Hemoglobin 8.8 g/dL (12.0-16.0)
--- NOTE | 2022-07-30 15:06 | CM.DANOTE ---
Initial Discharge Assessment Note: Met with patient, introduced self and role. Payer: [employer] Medicare and self pay. 86 year old female admitted yesterday with pneumonia and 2 days of sharp LLQ abd pain. Her INR was high and it was discovered she had a large hematoma to abdomen. She was given anticoagulants and H&H being monitored. Patient is pleasant, A/O, lives alone, is independent and drives; spouse is in SNF. Daughter Amanda lives nearby and assists as needed. P: Follow closely for needs. When medically cleared, patient desires to return home. JAISON Discharge Planning/Care Management CM Discharge Assessment Start: 07/30/22 12:56 Freq: Status: Active Protocol: Document 07/30/22 12:56 (Rec: 07/30/22 12:57 [id number]) Discharge Planning Assessment Assigned Barrer And Tacker Delmis Delatorre RN/JEAN MARIE Advance Directives? No History Provided By Patient Has Patient been admitted in last 30 No days? Prior Living Arrangements House Household Members none Type of transporation used prior to Drives own vehicle admit Independent with ADL's Yes Is patient alert and oriented? Yes Barriers to Discharge No Referrals Initiated None needed Additional Comment Possibly HH? Review Status In Process Next Review Type Continued Stay Review Document 07/30/22 15:06 (Rec: 07/30/22 15:06 [id number]) Discharge Planning Assessment Assigned Barrer And Tacker Delmis Delatorre RN/JEAN MARIE Advance Directives? No History Provided By Patient Has Patient been admitted in last 30 No days? Prior Living Arrangements House Household Members none Type of transporation used prior to Drives own vehicle admit Independent with ADL's Yes Is patient alert and oriented? Yes Barriers to Discharge No Referrals Initiated None needed Additional Comment Possibly HH? Review Status In Process Next Review Type Continued Stay Review
[2022-07-30] MEDS: polyethylene glycoL 3350 17 GM POWD.PACK PO (18:48)
[2022-07-30] MEDS: DOCUSATE 100 MG CAPSULE PO (20:56)
[2022-07-30 21:10] LABS: Hematocrit 25.2 % (36-46); Hemoglobin 8.5 g/dL (12.0-16.0)
[2022-07-31 04:00] VITALS: BP 131/68; PULSE 87; RESP 14; O2SAT 92
[2022-07-31 06:01] LABS: Add Manual Diff / Slide Review NO; Basophils Absolute Auto 100 /uL (0-100); Basophils Percent Auto 0.8 % (0-2); Eosinophils Absolute Auto 200 /uL (0-450); Eosinophils Percent Auto 2.2 % (2-4); Hematocrit 25.2 % (36-46); Hemoglobin 8.8 g/dL (12.0-16.0); Lymphocytes Absolute Auto 1700 /uL (1100-4500); Lymphocytes Percent Auto 19.9 % (25-40); Mean Corpuscular HGB Conc 34.7 % (30-36); Mean Corpuscular Hemoglobin 31.1 PG (26-34); Mean Corpuscular Volume 89.5 fL (80-100); Monocytes Absolute Auto 800 /uL (0-900); Monocytes Percent Auto 9.2 % (3-14); Neutrophils Absolute Auto 5700 /uL (1500-7000); Neutrophils Percent Auto 67.9 % (50-75); Platelet Count 273 X10^3/uL (150-400); Red Blood Cell Count 2.82 X10^6/uL (4.0-5.2); White Blood Cell Count 8.4 X10^3/uL (4.5-11.0)
[2022-07-31 06:04] LABS: INR 1.1 (0.9-1.3); Prothrombin Time 12.8 SECONDS (10.1-12.7)
[2022-07-31 08:00] VITALS: BP 132/74; PULSE 81; RESP 16; TEMP 36.1; O2SAT 95
[2022-07-31] MEDS: polyethylene glycoL 3350 17 GM POWD.PACK PO (08:56)
[2022-07-31] MEDS: AMOXICILLIN/CLAV 875/125 MG 1 TAB PO (08:56)
[2022-07-31] MEDS: DOCUSATE 100 MG CAPSULE PO (08:56)
--- NOTE | 2022-07-31 09:44 | PT.IIE ---
Surgical History (Last Reviewed 07/29/22 @ 16:19 by Destin Oh DO) H/O skin graft History of appendectomy S/P laparoscopic-assisted sigmoidectomy Medical History (Last Reviewed 07/29/22 @ 16:19 by Destin Oh DO) Atrial fibrillation HLD (hyperlipidemia) HTN (hypertension) Physical Therapy Inpatient Evaluation/Re-Eval M1 PT/OT-IP Prior Functional Status Start: 07/31/22 09:26 Freq: NEEDED Status: Active Protocol: Document 07/31/22 09:26 [facility] (Rec: 07/31/22 09:44 [facility] [id number]) Medical Review Prior Functional Status Medical History Reviewed Yes Mobility and Gait pt was ambulating with AD Activities of Daily Living and IADL's IND Social History Household Members none Living Arrangements House Number of Floors (Floors) One Floor Number of Stairs To Enter/Railing? 2 steps from garage into house M2 PT-IP Current Condition Start: 07/31/22 09:26 Freq: NEEDED Status: Active Protocol: Document 07/31/22 09:26 [facility] (Rec: 07/31/22 09:44 [facility] [id number]) Physical Therapy Current Condition Current Condition Evaluation Date 07/31/22 Treatment Diagnosis abdominal wall hematoma and history of pneumonia M3 PT-IP Subjective Start: 07/31/22 09:26 Freq: NEEDED Status: Active Protocol: Document 07/31/22 09:26 [facility] (Rec: 07/31/22 09:44 [facility] [id number]) Subjective Physical Therapy Visit Type Type Initial Evaluation Visit Start Time 08:55 Visit Stop Time 09:20 Total Visit Minutes 25 Physical Therapy Visit Comments Patient Comments pt is laying comfortable in bed, she reports she has gotten up and ambulated to the bathroom this am and had a successful bowel movement. Pt agrees to PT and notes her abdomen is feeling a little better with pain at 5/10 (was 10/10) Patient Goals pt would like to return home Therapy Pain Assessment Pain Present Pain Present Pain Reported Location llq abd Intensity 5 Scale Used Numeric (0 - 10) M4 PT-IP Mobility and Gait Start: 07/31/22 09:26 Freq: NEEDED Status: Active Protocol: Document 07/31/22 09:26 [facility] (Rec: 07/31/22 09:44 [facility] [id number]) PT-Bed Mobility Assessment Rolling Level of Assist Independent Supine to Sit Supine to Sit Independent Sit to Supine Sit to Supine Independent Scooting Scooting to Edge of Bed Independent PT-Transfer Assessment Sit to and From Stand Sit to and from Stand Independent Equipment Transfer Assistive Device Gait Belt Orthotic/Prosthetic Devices or Brace: No Transfers Transfer Destination Bed Transfer Technique Stand Step Pivot Transfer Ability Level of Assist Independent Comments Mobility Comments pt able to ambulate independently to the bathroom and to the window seat to look out side, no loss of balance and no change in pain levels Gait Assessment Gait Gait Assistance Required: Independent Distance (Feet) 20 Able to Maintain Weight Bearing Status Yes During Gait Assistive Devices Assistive Device Gait Belt Orthotic/Prosthetic Devices or Brace: No Gait Deviations General Gait Pattern Within Normal Limits Factors Limiting Gait Function Factors Limiting Gait Function Pain Comments Gait Comments pain did not increase with gait, no loss of balance and pt in no distress with ambulation in room PT-Balance Assessment Sitting Balance and Reactions Static Sitting Balance Ability Normal Dynamic Sitting Balance Ability Normal Standing Balance and Reactions Static Standing Balance Ability Normal Dynamic Standing Balance Ability Normal M5 PT-IP Objective Assessments Start: 07/31/22 09:26 Freq: NEEDED Status: Active Protocol: Document 07/31/22 09:26 [facility] (Rec: 07/31/22 09:44 [facility] [id number]) Orientation Orientation/Cognition Level of Alertness Alert Orientation Name,Age,Birthday,Month,Date, Year,Day of Week,Place, Situation Gross Range of Motion Upper Extremity ROM Assessment Within Functional Limits Lower Extremity ROM Assessment Within Functional Limits Strength Upper Extremity Strength Assessment Within Functional Limits Lower Extremity Strength Assessment Within Functional Limits Muscle Tone Muscle Tone WNL Yes M7 PT-IP Assessment and Plan Start: 07/31/22 09:26 Freq: NEEDED Status: Active Protocol: Document 07/31/22 09:26 [facility] (Rec: 07/31/22 09:44 [facility] [id number]) PT Summary Assessment and Plan Potential Rehabilitation Potential Excellent Status of Condition at Evaluation Stable Summary Impairments Pain,Activity Tolerance Assessment Summary Giulia is a 86 year old female admitted with an Left abdominal wall hematoma. Pt reports she can not think of any injury sustained to her abdomen. She was coughing quite a bit with pneumonia prior to her onset of abdominal wall pain. Giulia lives alone in [place] in a single story home and her daughter lives near by. She drives and her resides in a [place]AY in [place]. With PT examination today Giulia is alert and comfortably laying in bed. She reports she recently had ambulated to the bathroom and had a successful bowel movement with helped decrease her abdominal discomfort. She rates her pain as 5/10 which she notes is significant decrease from the 10/10 she initially had. Giulia does not use any AD and was able to demonstrate IND bed mobility today. She performed a IND transfer from sit-stand. A gait belt was donned for assessment however pt demonstrated IND with gait in her room, she ambulated to the bathroom and to the window seat to look out the window. Pt demonstrates no loss of balance with gait and no increase in pain with ambulation. Giulia would like to return home once she is medically ready to go. Frequency of Treatment Frequency Of Treatment Discharge Treatment Plan Other Recommendations and Next Treatment pt to be discharged home once [facility] medically stable Discharge Recommendations PT Discharge Recommendations Home Other Discharge Recommendations pts daughter lives near by and can assist with transport Transportation Needs at Discharge Private Vehicle
--- NOTE | 2022-07-31 10:18 | P.DS_ITS ---
History of Present Illness History of Present Illness Date Patient Seen: 07/31/22 Time Patient Seen: 10:18 Chief complaint: Pneumonia 2 days sharp pain lower lt side Narrative: This is an 86 year old female with PMH of paroxysmal atrial fibrillation, HTN, HLD, depression who presented with worsening abdominal pain. She states pain is in her LLQ, worse with movement, feels sharp and constant currently. It started a few days ago and thought it was from coughing. She denies radiation. She went to the walk in clinic a few days ago and was prescribed antibiotics for a pneumonia reportedly on a chest xray and has continued to have a non-productive cough. She denies any fever or chills. She has not shortness of breath, nausea, vomiting, diarrhea, constipation. She denies palpitatiosn or chest pain. In the emergency room, her vital signs were unremarkable. And laboratory evaluation showed No significant leukocytosis but mild anemia with a hemoglobin of 10.9 down from her baseline of approximately 13. INR was elevated at 5.3, chemistries were unremarkable. COVID-[address] of her abdomen and pelvis showed an abdominal wall hematoma in her pelvis that is 5x9x12 cm in size with possible active extravasation. She was given K-centra and vitamin K. She was admitted for further montioring to the hospitalist service. Discharge Providers Provider Date of admission: 07/29/22 13:09 Discharge Date: 07/31/22 Primary care physician: Cristo Hammond MD Consults: 07/29/22 18:31 Consult to Dietitian, Adult Routine Comment: Reason For Exam: more than 10 weight loss in 3 months 07/31/22 07:22 Consult to Occupational Therapy Evaluate & Treat Comment: Physician Instructions: Evaluate and treat Consult to Physical Therapy Evaluate & Treat Comment: Physician Instructions: Evaluate and Treat Discharge provider: Destin Oh DO Summary Hospital Course Discharge Diagnosis: 1. Abdominal wall hematoma due to coughing with acute blood loss anemia 2. Paroxysmal atrial fibrillation with supratherapeutic INR ? 3. HTN 4. HLD 5. Depression, chronic 6. Recent diagnosis of community acquired pneumonia Hospital Course: This is an 86 year old female with recent diagnosis of pneumonia admitted with an acute anemia found to have an abdominal wall hematoma on CT with active extravasation. She was admitted for further monitoring. Initially her INR was >5, she was given K-centra and vitamin K with improvement in her INR to 1.2 the following day. Her h/h was monitored until it stabilized, ultimately at around a Hg of 9. No transfusion was necessary. Her pain was well controlled and she worked well with therapies after h/h stabilized. She is recommended to hold coumadin at home for now, follow up with PCP in 1-2 weeks to discuss timing of resuming her coumadin. Time Spent with Patient Time spent: Less than 30 minutes Exam Vital Signs (past 8 hours): - 07/31/22 04:00 07/31/22 08:00 Temperature 97.0 F L Pulse Rate 87 81 Respiratory Rate 14 16 Blood Pressure 131/68 132/74 Pulse Oximetry 92 95 Oxygen Flow Rate 0 0 Oxygen Delivery Method Room Air Oxygen Flow Rate 0 Narrative Exam Narrative: General:? Patient is well developed and well nourished, in no distress at this time. HEENT:? Normocephalic, atraumatic, extraocular muscles intact, oral pharynx is clear and mucous membranes are moist. Neck: supple and symmetric, trachea is midline, no cervical adenopathy. Negative for JVD Chest:? Normal AP diameter and contour without kyphoscoliosis, no tachypnea, equal chest rise bilaterally. Lungs:? CTA b/l no wheezing rhonchi or rales. Cardio:?RRR no m/r/g. Abdomen: soft, mildly tender suprapubic region and LLQ. Small ecchymosis suprapubically, Musculoskeletal:? Muscle strength and tone are equal within normal limits, no deformity. Extremities: No joint effusions, trace bilateral non-pitting edema. No cyanosis or clubbing. Skin:? Pale,? Warm to touch,dry and intact without rashes, ulcerations or petechiae.? Neuro:? Alert and orientated x3,? sensation to touch intact in all extremities, no gross deficits noted of cranial nerves. Psych:? Patient has a well-kept appearance, appropriate affect, mental status attitude thought context and judgment are appropriate for age. Objective Labs Result Diagrams: 07/31/22 05:46 07/29/22 11:25 Labs: Laboratory Results - last 24 hr 07/30/22 07/30/22 07/31/22 14:04 20:56 05:46 WBC 8.4 RBC 2.82 L Hgb 8.8 L 8.5 L 8.8 L Hct 25.4 L 25.2 L 25.2 L MCV 89.5 MCH 31.1 MCHC 34.7 RDW 14.0 Plt Count 273 Neut % (Auto) 67.9 Lymph % (Auto) 19.9 L [place] % (Auto) 9.2 Eos % (Auto) 2.2 Baso % (Auto) 0.8 Neut # (Auto) 5700 Lymph # (Auto) 1700 [place] # (Auto) 800 Eos # (Auto) 200 Baso # (Auto) 100 PT INR 07/31/22 05:46 WBC RBC Hgb Hct MCV MCH MCHC RDW Plt Count Neut % (Auto) Lymph % (Auto) [place] % (Auto) Eos % (Auto) Baso % (Auto) Neut # (Auto) Lymph # (Auto) [place] # (Auto) Eos # (Auto) Baso # (Auto) PT 12.8 H INR 1.1 PFSH Medical History Atrial fibrillation HLD (hyperlipidemia) HTN (hypertension) Surgical History H/O skin graft History of appendectomy S/P laparoscopic-assisted sigmoidectomy Social History household members: none Smoking Status: Never smoker Discharge Plan Discharge Plan Patient Disposition: Home Provider Discharge Comment: You were admitted to the hospital with a hematoma in your abdomen. Your coumadin was reversed and you should continue to not take this medication for a while. Please follow up with your primary care provider in the next 1-2 weeks to discuss resuming coumadin. You can resume previous antibiotics that were prescribed to you for pnuemonia, but I would only take 2 additional days more at home. Discharge orders & Medications Prescriptions: Continued CARVEDILOL (Coreg) 3.125 mg PO BID Qty: 0 Losartan Potassium (Cozaar) 25 mg PO Q DAY Qty: 0 omeprazole 20 MG capsule,delayed release(DR/EC) 20 mg PO QDAY Qty: 0 NITROGLYCERIN (Nitrostat) 0.4 mg Sublingual [id number] Qty: 0 sertraline 100 MG tablet 100 mg PO QDAY Qty: 0 aspirin 81 MG tablet,delayed release (DR/EC) 81 mg PO [facility] Qty: 30 0RF oxycodone 5 MG tablet 5 mg PO Q4HP PRNQty: 20 0RF hydrocodone-acetaminophen [Vicodin] 5 MG/300 MG tablet 1 tab PO Q4HP PRNQty: 20 0RF bupropion HCl 150 mg tablet sustained-release 12 hr 150 mg PO DAILY gabapentin 300 mg capsule 300 mg PO TID Discontinued warfarin [Jantoven] 5 mg tablet 5 mg PO DAILY Follow up/Referrals: Cristo Hammond MD [Primary Care Provider] - Diet/Activity/Treatments Diet: Diet as Tolerated Activity: As tolerated Visit Report/Discharge Packet Instructions: DI for Hematoma (Bruise) Discharge Data Primary Care Provider: Cristo Hammond Attending Provider: Destin Oh VTE Deep Vein Thrombosis/Pulmonary Embolism Present on Admission: No
--- NOTE | 2022-07-31 11:31 | DIET.CONS2 ---
Dietary Inpatient Consultation Note Admission Date: 07/29/2022 13:09 Pt referred to nutrition for reported unintentional weight loss. Chart review shows pt weight stable x3y c BMI 29. POs this hospitalization 75-100%, no indication for nutrition intervention. Diet: 07/29/22 Lunch General (Regular) Diet Diet Modifications: Nutrition Percent Meal Consumed 100% 07/30/22 18:00 Percent Meal Consumed 75% 07/30/22 13:06 Percent Meal Consumed 50% 07/30/22 09:52 Percent Meal Consumed 75% 07/29/22 18:00 Electronically Signed by: Jasmin Anderson 07/31/22 11:31 Clinical Dietitian [address] [address]
[2022-07-31 12:00] VITALS: PULSE 85; RESP 16; TEMP 36.6; O2SAT 96
--- NOTE | 2022-07-31 13:47 | OT.IPNOTE ---
Per rounds and P.T., no Ot needs at this time. Will discharge order.
--- NOTE | 2022-07-31 15:14 | PC.NURSE ---
Discharge Note Patient A&O, VSS, RA, no complaints of pain/discomfort. Discharge plan reviewed with patient, all questions/concerns addressed. Patient agreeable to discharge plan. PIV discontinued. Patient able to pack all belongings and dress self. Patient taken down via wheelchair to POV accompanied by daughter.
== END 2022-07-31 15:15 | disposition home or self-care (01) | DRG 604 ==
LOC: ED 13:07 → AC 13:10
PROVIDERS: Admitting Provider Internal Medicine; Emergency Provider Emergency Medicine; PCP Family Medicine; Referring Provider Emergency Medicine; Visit Provider Internal Medicine
DX: S30.1XXA Contusion of abdominal wall, initial encounter (principal); J18.9 Pneumonia, unspecified organism; D62 Acute posthemorrhagic anemia; D68.9 Coagulation defect, unspecified; I48.0 Paroxysmal atrial fibrillation; E78.5 Hyperlipidemia, unspecified; F32.A Depression, unspecified; I10 Essential (primary) hypertension; X58.XXXA Exposure to other specified factors, initial encounter; Z79.01 Long term (current) use of anticoagulants; Z20.822 Contact with and (suspected) exposure to COVID-19
CPT/HCPCS: 36415; 74177; 80053; 83690; 85014; 85018; 85025; 85610; 85730; 87635; 93005; 96374; 96375; 97161; 99284; C9803; G0378; J2270; J2405; J3430; J7168; Q9967

== ENCOUNTER → 2022-11-23 15:24 | Outpatient (CLI) | payer MEDICARE, SELFPAY ==
[2022-07-29 18:12] VITALS: BMI 29.2
--- NOTE | 2022-11-23 15:26 | DI.US.S_ITS ---
PROCEDURE: US PERIPH VENOUS LOW EXTREM LT INDICATIONS: LEFT LEG SWELLING TECHNIQUE: Real-time imaging, as well as color and pulse Doppler interrogation, were performed of the lower extremity deep veins from the inguinal ligament to the popliteal fossa. COMPARISON: None. FINDINGS: The common femoral, femoral and popliteal veins are normally compressible, and free of intraluminal thrombus. Color and pulse Doppler demonstrate normal phasic intraluminal flow. There is normal augmentation response to distal compression maneuver. Incidental popliteal cyst 4.8 x 2.9 cm IMPRESSION: No evidence of DVT, left lower extremity Approved by: Bossman Bonilla M.D. on 11/23/2022 at 16:43
== END ==
PROVIDERS: PCP Family Medicine; Referring Provider Physician Assistant; Visit Provider Physician Assistant
DX: M71.22 Synovial cyst of popliteal space [Baker], left knee (principal); M79.662 Pain in left lower leg; M79.89 Other specified soft tissue disorders
CPT/HCPCS: 93971

== ENCOUNTER → 2023-06-28 11:40 | Outpatient (CLI) | payer MEDICARE, SELFPAY ==
[2022-07-29 18:12] VITALS: BMI 29.2
--- NOTE | 2023-06-28 | DI.RAD.S_ITS ---
PROCEDURE: XR KNEE LT 3V INDICATIONS: acute pain of left knee TECHNIQUE: Three views of the knee were acquired. COMPARISON: None. FINDINGS: Bones: No acute fractures or dislocations. No suspicious bony lesions. Mild osteoarthrosis. Soft tissues: No joint effusion. 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 IMPRESSION: 1. Mild osteoarthrosis. 2. 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 Approved by: Alberto Razo M.D. on 06/28/2023 at 21:06
== END ==
PROVIDERS: PCP Physician Assistant; Referring Provider Internal Medicine; Visit Provider Internal Medicine
DX: M17.12 Unilateral primary osteoarthritis, left knee (principal); M25.562 Pain in left knee; M89.9 Disorder of bone, unspecified
CPT/HCPCS: 73562

== ENCOUNTER 2023-12-10 17:54 | Emergency (ER) | payer OTHER, MEDICARE, SELFPAY ==
[2022-07-29 18:12] VITALS: BMI 29.2
[2023-12-10 18:10] VITALS: BP 156/72; PULSE 70; RESP 18; TEMP 37.1; O2SAT 98; BMI 31.2
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
[2023-12-10] MEDS: HYDROCODONE/ACET 5/325 PREPACK 1 BOTTLE MISC (19:58)
[2023-12-10 20:02] VITALS: BP 146/79; PULSE 61; RESP 17; O2SAT 96
== END 2023-12-10 20:03 | disposition home or self-care (01) ==
PROVIDERS: Emergency Provider Emergency Medicine; PCP Physician Assistant
DX: S20.20XA Contusion of thorax, unspecified, initial encounter (principal); V89.2XXD Person injured in unspecified motor-vehicle accident, traffic, subsequent encounter; Z79.01 Long term (current) use of anticoagulants
CPT/HCPCS: 71046; 99283